=== PATIENT | male | born 1950 | race Caucasian/White ===

== ENCOUNTER → 2018-07-07 | Outpatient (CLI) | payer MEDICARE, OTHER ==
--- NOTE | 2018-07-07 17:15 | PCVCIMAG ---
APPROVED REPORT Study performed: 07/07/2018 14:37:51 Exam: Stress Echocardiogram Indication: Hypertension, Elevated CA Score Patient Location: Echo lab Stress Nurse: Em Hdz RN Status: routine Ht: 5 ft 10 in HR: 62 bpm BP: 138/82 mmHg Rhythm: NSR Procedure The patient underwent an Exercise Stress Test using the Kali Protocol. Blood pressure, heart rate, and EKG were monitored. An Echocardiogram was performed by radiocommunications technician in four stages in quad fashion. At peak stress, four selected images were obtained and placed side by side with resting images for comparison. Stress Test Details Stress Test: Exercise stress testing was performed using a Kali protocol. HR Resting HR: 62 bpmMax Heart Rate (APMHR): 152 bpm Max HR Achieved: 166 bpmTarget HR (85% APMHR): 129 bpm % of APMHR: 109 Recovery HR: 100 bpm HR response to stress: Normal HR response to stress BP Resting BP: 138/82 mmHg Max BP: 182/80 mmHg Recovery BP: 140/80 mmHg BP response to stress: Normal blood pressure response to stress. ECG Resting ECG: Sinus Rhythm Stress ECG: Sinus Rhythm ST Change: Upsloping ST depression Maximum ST Deviation: 4 mm Recovery ECG: Sinus Rhythm Clinical Reason for Termination: Maximal effort Exercise duration: 10 min 00 sec Highest Stage Achieved: Stage 4: 4.2 mph at 16% grade. Exercise capacity: 13.40 METs Overall Exercise Capacity for Age: Good Stress ECG Conclusion Clinical: Non-ischemic Pre-Stress Echo The resting Echocardiogram showed normal left ventricular contractility with an estimated Ejection Fraction of about >55%. Normal wall motion in all segments on baseline images. Post-Stress Echo The stress Echocardiogram showed normal left ventricular contractility with an estimated Ejection Fraction of about 60-65%. Normal augmentation of wall motion in all segments on post stress images. Conclusion Clinical Response: Non-ischemic Exercise Capacity: Average Stress ECG Response: Equivocal Stress Echo Images: Non-ischemic The left ventricle is normal in size and wall thickness in both the rest and stress images. Other Information Study Quality: Adequate <Conclusion> The left ventricle is normal in size and wall thickness in both the rest and stress images.
== END | disposition home or self-care (01) ==
LOC: PCVCIMAG 14:12
PROVIDERS: ATTEND Internal Medicine Cardiovascular Disease
DX: I11.9 Hypertensive heart disease without heart failure (principal); R93.1 Abnormal findings on diagnostic imaging of heart and coronary circulation; K50.919 Crohn's disease, unspecified, with unspecified complications; Z82.49 Family history of ischemic heart disease and other diseases of the circulatory system
CPT/HCPCS: 93325; 93351; G0463

== ENCOUNTER → 2019-02-03 | Outpatient (CLI) | payer MEDICARE, OTHER ==
--- NOTE | 2019-02-03 15:21 | PCVCIMAG ---
APPROVED REPORT Laterality: Bilateral Indications Bruit Doppler Spectral Velocity Analysis PSV / EDVPSV / EDV ECA (R) 113 / 10 cm/sECA (L) 94 / 10 cm/s dICA (R) 68 / 27 cm/sdICA (L) 83 / 29 cm/s Sofia (R) 61 / 20 cm/smICA (L) 95 / 38 cm/s pICA (R) 63 / 10 cm/spICA (L) 83 / 24 cm/s Bulb (R) 69 / 18 cm/sBulb (L) 81 / 19 cm/s dCCA (R) 84 / 18 cm/sdCCA (L) 88 / 17 cm/s mCCA (R) 92 / 18 cm/smCCA (L) 101 / 21 cm/s Vert (R) 39 / 12 cm/sVert (L) 46 / 10 cm/s ICA/CCA 0.81ICA/CCA 1.08 Findings The right carotid bulb has mild plaque. The right proximal internal carotid artery shows no significant stenosis. The right common carotid artery shows no significant stenosis. The right external carotid artery shows no significant stenosis. The left carotid bulb has minimal plaque. The left proximal internal carotid artery shows no significant stenosis. The left common carotid artery shows no significant stenosis. The left external carotid artery shows no significant stenosis. Conclusion 1. Mild bilateral plaquing without significant stenosis. 2. Antegrade vertebral flow.
== END | disposition home or self-care (01) ==
LOC: PCVCIMAG 14:23
PROVIDERS: ATTEND Internal Medicine Cardiovascular Disease
DX: I65.23 Occlusion and stenosis of bilateral carotid arteries (principal); I25.10 Atherosclerotic heart disease of native coronary artery without angina pectoris; I10 Essential (primary) hypertension; E78.5 Hyperlipidemia, unspecified; R09.89 Other specified symptoms and signs involving the circulatory and respiratory systems; R93.1 Abnormal findings on diagnostic imaging of heart and coronary circulation; Z79.82 Long term (current) use of aspirin
CPT/HCPCS: 36415; 80061; 93005; 93880; G0463